=== PATIENT | male | born 1950 | race Caucasian/White ===

== ENCOUNTER → 2016-08-30 | Day surgery (SDC) | payer OTHER, BC ==
[2016-08-29 14:02] VITALS: Ht 177.8 cm; Wt 68.2 kg
[~2016-08-30] VITALS: Ht 177.8 cm; Wt 68.2 kg
[~2016-08-30] MED LIST: ATROPINE SULFATE 0.1 MG/ML 5ML SYR IV PRN; BUPIVACAINE/EPINEPHRINE 0.5% MPF 1:200,000 30 ML VIAL ONE; CEFAZOLIN 2000 MG/60 ML D5W IV SCH; DEXAMETHASONE SOD INJ 4 MG/ML VIAL ONE; EpHEDrine SULFATE 50MG/5ML SYR ONE; EpHEDrine SULFATE INJ 50 MG/ML AMP IV PRN; FENTANYL CITRATE INJ 50 MCG/1 ML 2 ML VIAL IV PRN; FENTANYL CITRATE INJ 50 MCG/1 ML 2 ML VIAL ONE; HYDR-5688 PO; HYDROCODONE/ACETAMOPHEN 5/325MG TAB ONE; HYDROCODONE/ACETAMOPHEN 5/325MG TAB PO PRN; IBUPROFEN 600 MG TAB PO PRN; KETOROLAC TROMETHAMINE 30 MG/ML VIAL IV. PRN; LACTATED RINGER'S 1000ML 1,000 ML IV SCH; LIDOCAINE HCL 2% 2 ML VIAL (20MG/ML) ONE; MIDAZOLAM HCL 1 MG/ML 2ML VIAL ONE; MULT-506 PO; ONDANSETRON INJ 2 MG/ML 2 ML VIAL IV PRN; ONDANSETRON INJ 2 MG/ML 2 ML VIAL ONE; PROMETHAZINE HCL INJ 6.25 MG in SODIUM CHLORIDE 0.9% 50ML 50 ML IV PRN; PROPOFOL IV EMULSION 10 MG/ML 20 ML VIAL IV ONE; SODIUM CHLORIDE 0.9% 1000ML 1,000 ML IV SCH
--- NOTE | 2016-08-30 06:47 | History & Physical Bridge Note ---
H&P Re-Evaluation Bridge Note: I have examined the patient, reviewed the History & Physical and in the interval since the performance of the History & Physical I have noted the following changes of clinical significance: No changes noted
--- NOTE | 2016-08-30 06:49 | Discharge Instructions-SurgCtr ---
Discharge Instructions Visit Reason for Visit: Right Inguinal Hernia;Pre-Op Z01.810 Discharge Discharge Diagnosis / Problem: right inguinal hernia Discharge Goals Goal(s): Decrease discomfort, Improve function Activity Recommendations Activity Limitations: as noted below Lifting Limitations: no more than 10 pounds Exercise/Sports Limitations: until after follow-up appointment May Resume Sexual Activity: after follow-up appointment Shower/Bathe: tomorrow Anesthesia . Post Anesthesia Instructions: If you have had General Anesthesia or IV Sedation: * Do not drive today. * Resume driving when surgeon permits. * Do not make important decisions or sign legal documents today. * Call surgeon for: 1. Temperature elevations greater than 101 degrees F. 2. Uncontrollable pain. 3. Excessive bleeding. 4. Persistent nausea and vomiting. 5. Medication intolerance (nausea, vomiting or rash). * For nausea and vomiting use only clear liquids such as: tea, soda, bouillon until nausea subsides, then gradually increase diet as tolerated. * If you have any concerns or questions, call your surgeon's office. If physician is unavailable and it is an emergency, call 911 or go to the nearest emergency room. . Diet Recommendations Home Diet: resume previous diet Procedures Procedures Performed: open right inguinal hernia repair with mesh Pending Studies Studies pending at discharge: no Medical Emergencies . Who to Call and When: Medical Emergencies: If at any time you feel your situation is an emergency, please call 911 immediately. . Non-Emergent Contact Non-Emergency issues call your: Primary Care Provider, Surgeon Call Non-Emergent contact if: temperature is above 101, wound has increased drainage, wound has increased redness, wound has increased pain . . "Provider Documentation" section prepared by Nickolas Shipman.
--- NOTE | 2016-08-30 08:11 | Medical Student: [facility] ---
Immediate Operative Summary Operative Date Aug 30, 2016. Pre-Operative Diagnosis R inguinal hernia Post-Operative Diagnosis Same as above Procedure(s) Performed Open R inguinal hernia repair wih mesh Surgeon Dr. Nickolas Shipman Vp [employer] Surgeon(s) Esther Stoddard MS4 Estimated Blood Loss 5 cc Findings 1. Right indirect inguinal hernia 2. Right direct inguinal hernia Specimens Hernia sac and contents Drains None Anesthesia GETA Complication(s) None Disposition Recovery Room / PACU (In stable condition)
--- NOTE | 2016-08-30 08:15 | [facility] Operative Report ---
Operative Report Operative Date Aug 30, 2016. Pre-Operative Diagnosis right inguinal hernia Post-Operative Diagnosis direct and indirect right inguinal hernia Procedure(s) Performed open right inguinal hernia repair with mesh Findings pantaloon right inguinal hernia Anesthesia general Complication(s) None Disposition Recovery Room / PACU I attest to the content of the Intraoperative Record and any orders documented therein. Any exceptions are noted below.
[2016-08-30 09:00] VITALS: TEMP 36.6
--- NOTE | 2016-08-30 09:14 | OPERATIVE REPORT ---
DATE OF OPERATION: 08/30/2016 PREOPERATIVE DIAGNOSIS: Right inguinal hernia. POSTOPERATIVE DIAGNOSIS: Direct and indirect right inguinal hernia. PROCEDURES: Open right inguinal hernia repair with mesh. SURGEON: Dr. Shipman. ESTIMATED BLOOD LOSS: 5 mL. COMPLICATIONS: No immediate. ANESTHESIA: General. OPERATION AND FINDINGS: OPERATIVE NOTE: After informed consent was obtained, the patient was taken to the operating suite and placed in supine position. After successful placement of laryngeal mask airway the right groin was shaved and sterilely prepped and draped in usual fashion. I began with an inguinal incision with a 15 blade scalpel. It was carried down through the soft tissue using electrocautery. The external oblique aponeurosis was skeletonized and incised with a fresh blade. It was extended down through the external ring with Metzenbaum scissors as well as for several centimeters proximally. We bluntly dissected the tissues in the inguinal canal. We were able to grasp the cord and cord structures and elevate them with a Darlene clamp. I was then able use blunt finger dissection to come underneath the cord and cord structures and a [place] drain was placed around them. When we elevated the cord structures we immediately noted a bulge in the inguinal floor consistent with a direct inguinal hernia. We did inspect the cord and cord structures and found a hernia sac. We were able to use primarily blunt dissection as well as small amounts of electrocautery to tease the sac off the cord and cord structures. We dissected it down to its neck and then clamped it with a hemostat and incised the hernia sac and tied it off using 3-0 silk. The sac was dunked back into the abdominal cavity. We then used a piece of polypropylene baron-holed mesh as an onlay. It was secured distally to Julius's ligament, laterally along the shelving portion of Poupart's ligament and medially along the rectus midline musculature. The "arms" of the mesh were wrapped around behind the cord and cord structures and secured to underlying muscle. All of the sutures placed were 0 Ethibond. The mesh laid nice and tension free and did not impinge upon the cord structures. I should note that I did identify the ilioinguinal nerve at the beginning of the case and lysed it sharply to prevent future cord entrapment. We then thoroughly irrigated the wound. There was adequate hemostasis. I did inject some Marcaine around the edges of the mesh for postoperative analgesia. External oblique aponeurosis was closed using 2-0 Vicryl in a running fashion. Soft tissue was irrigated and closed using 3-0 Vicryl and 4-0 Monocryl. Some additional Marcaine was injected around the incision for postoperative analgesia and skin glue used as a dressing. The patient was awakened, extubated, and transferred to recovery in stable condition. I attest to the content of the Intraoperative Record and any orders documented therein. Any exceptio ns are noted below.
--- NOTE | 2016-08-30 09:20 | Anesthesia Progress Nt - [facility] ---
Anesthesia Post Op Note Date & Time Aug 30, 2016 at 09:19 Vital Signs Pain Intensity: 2 Vital Signs Past 12 Hours Date Time Temp Pulse Resp B/P Pulse Ox O2 Delivery O2 Flow Rate FiO2 08/30/16 09:00 36.6 76 20 143/78 97 Room Air 08/30/16 08:54 142/77 08/30/16 08:52 67 15 97 08/30/16 08:52 67 15 08/30/16 08:49 130/75 08/30/16 08:47 69 21 97 08/30/16 08:47 73 21 08/30/16 08:44 136/82 08/30/16 08:42 68 7 08/30/16 08:42 68 7 98 08/30/16 08:41 73 15 97 08/30/16 08:41 71 15 08/30/16 08:39 143/75 08/30/16 08:36 74 13 98 08/30/16 08:36 74 13 08/30/16 08:35 36.6 73 12 143/75 97 Room Air 08/30/16 08:34 144/84 08/30/16 08:31 77 16 08/30/16 08:31 78 16 97 08/30/16 08:29 135/77 08/30/16 08:26 82 13 08/30/16 08:26 83 13 98 08/30/16 08:24 136/76 08/30/16 08:21 77 15 08/30/16 08:21 76 15 100 08/30/16 08:19 119/64 08/30/16 08:16 74 12 08/30/16 08:16 74 12 100 08/30/16 08:14 111/62 08/30/16 08:11 36.5 75 16 113/65 99 Diffusion Mask 6 08/30/16 08:11 74 9 08/30/16 08:11 74 9 99 08/30/16 06:23 36.7 67 16 144/81 98 Room Air Notes Mental Status: alert / awake / arousable, participated in evaluation Pt Amnestic to Procedure: Yes Nausea / Vomiting: adequately controlled Pain: adequately controlled Airway Patency, RR, SpO2: stable & adequate BP & HR: stable & adequate Hydration State: stable & adequate Anesthetic Complications: no major complications apparent
[2016-08-30 09:35] VITALS: BP 139/76; PULSE 67; O2SAT 96
== END | disposition home or self-care (01) ==
LOC: X.SURG 06:09
PROVIDERS: ATTEND Surgery
DX: K40.90 Unilateral inguinal hernia, without obstruction or gangrene, not specified as recurrent (principal); F17.200 Nicotine dependence, unspecified, uncomplicated; Z85.820 Personal history of malignant melanoma of skin; Z98.890 Other specified postprocedural states; Z88.5 Allergy status to narcotic agent; Z80.9 Family history of malignant neoplasm, unspecified

== ENCOUNTER → 2016-09-15 | Outpatient (CLI) | payer BC, OTHER ==
[~2016-09-15] MED LIST changes: -ATROPINE SULFATE 0.1 MG/ML 5ML SYR IV PRN; -BUPIVACAINE/EPINEPHRINE 0.5% MPF 1:200,000 30 ML VIAL ONE; -CEFAZOLIN 2000 MG/60 ML D5W IV SCH; -DEXAMETHASONE SOD INJ 4 MG/ML VIAL ONE; -EpHEDrine SULFATE 50MG/5ML SYR ONE; -EpHEDrine SULFATE INJ 50 MG/ML AMP IV PRN; -FENTANYL CITRATE INJ 50 MCG/1 ML 2 ML VIAL IV PRN; -FENTANYL CITRATE INJ 50 MCG/1 ML 2 ML VIAL ONE; -HYDROCODONE/ACETAMOPHEN 5/325MG TAB ONE; -HYDROCODONE/ACETAMOPHEN 5/325MG TAB PO PRN; -IBUPROFEN 600 MG TAB PO PRN; -KETOROLAC TROMETHAMINE 30 MG/ML VIAL IV. PRN; -LACTATED RINGER'S 1000ML 1,000 ML IV SCH; -LIDOCAINE HCL 2% 2 ML VIAL (20MG/ML) ONE; -MIDAZOLAM HCL 1 MG/ML 2ML VIAL ONE; -ONDANSETRON INJ 2 MG/ML 2 ML VIAL IV PRN; -ONDANSETRON INJ 2 MG/ML 2 ML VIAL ONE; -PROMETHAZINE HCL INJ 6.25 MG in SODIUM CHLORIDE 0.9% 50ML 50 ML IV PRN; -PROPOFOL IV EMULSION 10 MG/ML 20 ML VIAL IV ONE; -SODIUM CHLORIDE 0.9% 1000ML 1,000 ML IV SCH
[2016-09-15 12:19] LABS: BASO % 0.3 %; BASO ABS # 0.03 K/uL (0-0.2); COMPLETE YES; EOS % 2.8 %; IG% 0.1 %; LYMPH % 21.9 %; LYMPH ABS # 1.98 K/uL (1.2-3.4); MEAN CELL VOLUME 93.6 fL (80-100); MEAN CORPUSCULAR HEMOGLOBIN 32.1 pg (25-34); MEAN CORPUSCULAR HGB CONC 34.3 g/dl (32-36); MEAN PLATELET VOLUME 10.4 fL (7.4-10.4); MONO % 9.5 %; NEUT % 65.4 %; PLATELET COUNT 315 K/uL (130-400); WHITE BLOOD COUNT 9.04 K/uL (4.8-10.8)
[2016-09-15 12:32] LABS: BLOOD UREA NITROGEN 21 mg/dl (7-18); BUN/CREATININE RATIO 19.1 (10-20); CARBON DIOXIDE 27 mmol/L (21-32); CHLORIDE 106 mmol/L (98-107); GLUCOSE 109 mg/dl (70-99); POTASSIUM 4.1 mmol/L (3.5-5.1); SODIUM 140 mmol/L (136-145)
[2016-09-15 12:46] LABS: ESTIMATED AVERAGE GLUCOSE 114 mg/dl; HA1C FLAG Normal (Normal)
--- NOTE | 2016-09-19 08:50 | CODING QUERY MEDICAL NECESSITY ---
SUPPORTING DIAGNOSIS NEEDED Dr. Cantu, A supporting diagnosis is required for the test/procedure performed on this patient in order for us to be reimbursed by the patient's insurance. Please provide a supporting diagnosis for the following test/procedure listed below next to the test name along with your signature. *If there is no additional diagnosis for this patient that would support the following test/procedure please document that below next to the test/procedure. Test(s)/Procedure(s) that require a supporting diagnosis: * 60950 PSA DIAGNOSIS: * [id number] GLYCATED HEMOGLOBIN DIAGNOSIS: DATE OF SERVICE: 09/15/16 Provider Signature: Date: Thank you Saleem Bright Health Information Management Once completed, please kindly fax back to [phone] For questions please call [phone]
== END | disposition home or self-care (01) ==
LOC: C.LABBFT 09:08
PROVIDERS: ATTEND Internal Medicine
DX: N52.9 Male erectile dysfunction, unspecified (principal); R73.03 Prediabetes

== ENCOUNTER → 2017-03-13 | Outpatient (CLI) | payer BC ==
[~2017-03-13] MED LIST changes: -HYDR-5688 PO
== END | disposition home or self-care (01) ==
LOC: C.LABBFT 08:34
PROVIDERS: ATTEND Physician Assistant Medical
DX: Z11.59 Encounter for screening for other viral diseases (principal); M51.36 Other intervertebral disc degeneration, lumbar region; I35.8 Other nonrheumatic aortic valve disorders; R73.03 Prediabetes

== ENCOUNTER → 2017-03-17 | Outpatient (CLI) | payer BC ==
[2017-03-17 12:28] LABS: BASO % 0.5 %; BASO ABS # 0.04 K/uL (0-0.2); COMPLETE YES; EOS % 2.8 %; HEMATOCRIT 40.7 % (42-52); IG% 0.3 %; LYMPH % 20.3 %; LYMPH ABS # 1.62 K/uL (1.2-3.4); MEAN CELL VOLUME 97.1 fL (80-100); MEAN CORPUSCULAR HEMOGLOBIN 33.9 pg (25-34); MEAN CORPUSCULAR HGB CONC 34.9 g/dl (32-36); MEAN PLATELET VOLUME 10.6 fL (7.4-10.4); MONO % 9.5 %; NEUT % 66.6 %; PLATELET COUNT 268 K/uL (130-400); RED BLOOD COUNT 4.19 M/uL (4.7-6.1); WHITE BLOOD COUNT 7.99 K/uL (4.8-10.8)
[2017-03-17 13:29] LABS: ESTIMATED AVERAGE GLUCOSE 114 mg/dl; HA1C FLAG Normal (Normal)
[2017-03-17 13:30] LABS: ALT/SGPT 24 U/L (12-78); AST/SGOT 20 U/L (15-37); BLOOD UREA NITROGEN 15 mg/dl (7-18); BUN/CREATININE RATIO 15.2 (10-20); CALCIUM 8.6 mg/dl (8.5-10.1); CARBON DIOXIDE 25 mmol/L (21-32); CHLORIDE 109 mmol/L (98-107); GLUCOSE 98 mg/dl (70-99); SODIUM 141 mmol/L (136-145)
[2017-03-17 13:31] LABS: ALB/GLOB RATIO 1.3 (0.9-2)
[2017-03-17 13:32] LABS: ALKALINE PHOSPHATASE 81 U/L (45-117)
== END | disposition home or self-care (01) ==
LOC: C.LABBFT 09:32
PROVIDERS: ATTEND Physician Assistant Medical
DX: R73.03 Prediabetes (principal)

== ENCOUNTER → 2017-03-31 | Outpatient (CLI) | payer BC ==
--- NOTE | 2017-03-31 10:33 | DIAGNOSTIC IMAGING REPORT ---
CT LUNG SCREENING, LOW DOSE WITH COMPUTER-AIDED DETECTION (CAD) CLINICAL HISTORY: Smoker. CT lung screening. COMPARISON STUDY: Chest CT dated 09/11/2015 CT DOSE: 97.55 mGy.cm TECHNIQUE: Low-dose helical CT was acquired without intravenous contrast from lung apices to bases and reconstructed at 2.5 mm every 2 mm. CAD was utilized for this study. A dose lowering technique was utilized adhering to the principles of ALARA. FINDINGS: Thyroid: Imaged portions of the thyroid gland are normal in appearance. Thoracic aorta: The thoracic aorta is normal in course and caliber, noting standard 3 vessel arch anatomy. Heart: There are coronary artery calcifications present. Lungs and pleural spaces: There is mild pulmonary emphysema. There are mild dependent atelectatic changes. No significant prominent nodules are visualized Mediastinum: There is no mediastinal lymphadenopathy. Kimberley: Clear. Axilla: Clear. Upper abdomen: Partially visualized upper abdominal viscera is within normal limits. Skeletal structures: There are no lytic or blastic osseous lesions. IMPRESSION: No pulmonary nodules identified. Continue annual screening in 12 months. CAD FINDINGS: Overall Lung RADS Category: 1 Lung RADS Management Recommendation: Lung-RADS 1: Continue annual screening in 12 months. Lung RADS Follow Up Date: 2018-03-31 Lung RADS Nodule ID: Electronically signed by: Preston Hernández M.D. 03/31/2017 10:32 AM Dictated Date/Time: 03/31/2017 10:26 AM
== END | disposition home or self-care (01) ==
LOC: C.CTS 10:13
PROVIDERS: ATTEND Internal Medicine
DX: Z12.2 Encounter for screening for malignant neoplasm of respiratory organs (principal); Z87.891 Personal history of nicotine dependence

== ENCOUNTER → 2017-05-20 | Outpatient (CLI) | payer BC ==
[2017-05-20 12:53] LABS: URINE APPEARANCE CLEAR (CLEAR); URINE BILIRUBIN NEG (NEG); URINE COLOR YELLOW; URINE NITRITE NEG (NEG); UROBILINOGEN NEG (NEG); ZZUR CULT IF INDIC CLEAN CATCH NO
[2017-05-20 12:54] LABS: MANUAL MICROSCOPIC REQUIRED? NO; REVIEW REQ? NO
== END | disposition home or self-care (01) ==
LOC: C.LAB 11:45
PROVIDERS: ATTEND Internal Medicine
DX: R35.0 Frequency of micturition (principal)

== ENCOUNTER → 2017-07-10 | Outpatient (CLI) | payer BC ==
--- NOTE | 2017-07-10 16:54 | DIAGNOSTIC IMAGING REPORT ---
[facility] CLINICAL HISTORY: Nephrolithiasis. Benign prostatic hyperplasia. COMPARISON STUDY: [facility] October 06, 2015. FINDINGS: Numerous bilateral renal calculi measuring up to 4 mm are similar to exam of October 06, 2015. Pelvic calcifications are unchanged and likely reflect phleboliths. Bowel gas pattern is normal. IMPRESSION: 1. No significant change in bilateral nephrolithiasis. 2. No ureteral calculi identified. Electronically signed by: Ej Renteria M.D. 07/10/2017 4:53 PM Dictated Date/Time: 07/10/2017 4:51 PM
== END | disposition home or self-care (01) ==
LOC: C.RAD1850 16:19
PROVIDERS: ATTEND Urology
DX: N20.0 Calculus of kidney (principal); N40.1 Benign prostatic hyperplasia with lower urinary tract symptoms